=== PATIENT | male | born 1960 | race Caucasian/White ===

== ENCOUNTER 2018-04-27 06:35 | Day surgery (SDC) | payer OTHER ==
[~2018-04-27] VITALS: Ht 175.3 cm; Wt 74.8 kg
[~2018-04-27 06:35] MED LIST: IBUPROFEN600 MG PO; KEFLEX500 MG PO; METOPROLOL TART25 MG; NORCO 5-325 TA1 EACH PO
[2018-04-27] MEDS ORDERED: GLUCOSAMINE1000 MG PO (06:58)
--- NOTE | 2018-04-27 08:16 | NUR ---
04/27/18 0816 Gianna Li 0809- PT ARRIVES TO PACU EASILY AROUSABLE TO VOICE. PT REPORTS NO PAIN OR NAUSEA. PT IS PASSING FLATUS. RESP EVEN AND UNLABORED. OXYGEN SAT HIGH 90'S TO 100% ON 3L VIA NC. 0813- PT TURNED HIMSELF TO HIS BACK AND PT SAT UP IN BED. PT REPORTS NO DIZZINESS, NAUSEA, OR PAIN. PT GIVEN WATER TO SIP ON. TOLERATING WELL. OXYGEN TURNED OFF. OXYGEN SAT HIGH 90'S ON RA.
--- NOTE | 2018-04-27 14:51 | OR ---
[facility] [address], [place] [address] Signed DATE OF OPERATION: 04/27/2018 SURGEON: Vero Yanes MD PREOPERATIVE DIAGNOSES: Left lower abdominal pain, constipation, episodic rectal bleeding. POSTOPERATIVE DIAGNOSES: 1. Sigmoid diverticulosis. 2. Internal hemorrhoids. 3. Small polyp of right colon. PROCEDURE: Total colonoscopy to cecum with cold morcellation polypectomy x1. ANESTHESIA: Intravenous sedation, fentanyl 150 mcg, Versed 5 mg. INDICATION: This 58-year-old white man is a patient of PAUL Reyes and has had complaints of left lower abdominal pain, sensation of a "blockage" including constipation, episodic rectal bleeding. He has had no weight loss or other systemic signs of infection or malignancy. 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 He is admitted at this time to undergo colonoscopy. He understands the risks of bleeding, infection, and perforation. He has no family history of colon cancer. FINDINGS: The prep was excellent. Complete colonoscopy was undertaken to the cecum. There was a small sessile polyp of the distal ascending colon, which was excised with cold morcellation technique. He had diverticulosis of the sigmoid and internal hemorrhoidal changes as well. There was no sign of blood or active bleeding. DESCRIPTION OF PROCEDURE: The patient was brought to the endoscopy suite and placed in lateral decubitus position given intravenous sedation to the point of slurred speech and nystagmus. Digital rectal examination was normal. An Olympus video colonoscope was passed in the rectum and manipulated through the sigmoid where numerous diverticula were seen of the sigmoid and left colon. Scope was ultimately advanced to the cecum. The ileocecal valve and appendiceal orifice were Electronically Signed By: VERO YANES MD 04/27/18 1451 PATIENT NAME: GISELLA MORAN OPERATIVE REPORT DATE OF : 60 REPORT #: [id number] PHYSICIAN: VERO YANES MD PCP: JONEL XAVIER REPORT IS CONFIDENTIAL AND NOT TO BE RELEASED WITHOUT AUTHORIZATION [facility] [address], [place] [address] Signed normal. Scope was withdrawn from that point and careful examination undertaken, showed a small sessile polyp about the hepatic flexure in the ascending colon. This was excised with cold morcellation technique. Narrow band imaging confirmed the lesion highly probable to be an adenoma. Careful withdrawal of scope more fully was undertaken showing no sign of other polyp. Diverticula were less prominent on withdrawal of the scope. Retroflexed view of the rectum showed internal hemorrhoidal changes with no sign of active bleeding. The scope was removed and the patient was taken to recovery room in good condition. CONCLUDING DIAGNOSES: Rectal bleeding probably related to hemorrhoids, left lower abdominal pain and constipation related to diverticulosis. PLAN: Recommend repeat colonoscopy in 3 years based on polyp that was found. Recommend Citrucel 1 tablespoon daily with added water and increased fluids and diet. If he should have recurrent rectal bleeding, consideration should be made for hemorrhoidal banding in the office setting. MD REGINA Roy/JANETTE /[id number] cc: PAUL Panda Copies: JONEL XAVIER ~ Electronically Signed By: VERO YANES MD 04/27/18 1451 PATIENT NAME: GISELLA MORAN OPERATIVE REPORT DATE OF : 60 REPORT #: [id number] PHYSICIAN: VERO YANES MD PCP: JONEL XAVIER REPORT IS CONFIDENTIAL AND NOT TO BE RELEASED WITHOUT AUTHORIZATION
== END 2018-04-27 08:50 | disposition home or self-care (01) ==
LOC: OPS 06:35 → DS 06:35 → OPS 06:45
PROVIDERS: Surgery
PROC: 0DBK8ZZ Excision of Ascending Colon, Via Natural or Artificial Opening Endoscopic (ICD-10-PCS; principal; 2018-04-27 06:45)
DX: D12.2 Benign neoplasm of ascending colon (principal); K57.30 Diverticulosis of large intestine without perforation or abscess without bleeding; K64.8 Other hemorrhoids; I10 Essential (primary) hypertension; J45.909 Unspecified asthma, uncomplicated; F17.210 Nicotine dependence, cigarettes, uncomplicated; Z79.899 Other long term (current) drug therapy
CPT/HCPCS: 99153; G0500; J2250; J3010; J7120

== ENCOUNTER 2018-05-09 16:05 | Emergency (ER) | payer OTHER ==
[~2018-05-09] VITALS: Ht 175.3 cm; Wt 74.8 kg
[~2018-05-09 16:05] MED LIST changes: +GLUCOSAMINE1000 MG PO
[2018-05-09] MEDS ORDERED: CYCLOBENZAPRINE10 MG PO (17:56)
[2018-05-09] MEDS ORDERED: NORCO 5-325 TA1 EACH PO (17:56)
== END 2018-05-09 18:15 | disposition home or self-care (01) ==
LOC: ED 16:05
DX: M62.838 Other muscle spasm (principal); I10 Essential (primary) hypertension; F17.200 Nicotine dependence, unspecified, uncomplicated
CPT/HCPCS: 70450; 72125; 80053; 81001; 85025; 96361; 99284-25; J1170; J7120

== ENCOUNTER 2021-08-10 10:40 | Day surgery (SDC) | payer OTHER ==
[~2021-08-10] VITALS: Ht 175.3 cm; Wt 76.8 kg
[~2021-08-10 10:40] MED LIST changes: +CYCLOBENZAPRINE10 MG PO
[2021-08-10] MEDS ORDERED: LISINOPRIL20 MG PO (11:09)
[2021-08-10] MEDS ORDERED: EQ GLUCOSAMINE1 EACH PO (11:10)
--- NOTE | 2021-08-10 13:15 | NUR ---
08/10/21 1315 Sunita Lewis 1312 PATIENT ARRIVES TO PACU SLEEPING. AWAKENS WITH VERBAL STIMULI. BACK TO SLEEP WHEN NOT STIMULATED. RESP EVEN AND UNLABORED, NC ON AT 2 LITERS, TURNED OFF ON ARRIVAL TO PACU, ROOM AIR SATS >96%.
--- NOTE | 2021-08-14 21:23 | OR ---
[facility] [address], [place] [address] Signed DATE OF OPERATION: 08/10/2021 SURGEON: Vero Yanes MD PREOPERATIVE DIAGNOSES: 1. History of tubular adenoma, right colon in 2018. 2. Diverticulosis. POSTOPERATIVE DIAGNOSIS: Diverticulosis, no evidence of polyps. PROCEDURE: Total colonoscopy to cecum. ANESTHESIA: Intravenous sedation, fentanyl 100 mcg and Versed 5 mg. INDICATIONS: This 61-year-old white man is a patient of PAUL Hickman. He is known to me from the past in 2018, having undergone colonoscopy and undergone a tubular adenoma excision of the right colon. He has no symptoms currently and no family history of colon cancer. He is known to have diverticulosis. He is admitted at this time to undergo surveillance colonoscopy. He understands the risks of bleeding, infection, and perforation. FINDINGS: The prep was excellent. Complete colonoscopy was undertaken. The cecum without question. He has scattered diverticula of the sigmoid and left colon, but no other findings of concern and specifically no polyps or cancer. DESCRIPTION OF PROCEDURE: The patient was brought to the endoscopy suite and placed in lateral decubitus position given intravenous sedation to the point of slurred speech and nystagmus. Digital rectal examination was normal. An Olympus video colonoscope was passed into the rectum and manipulated throughout the colon ultimately intubating the cecum itself. The ileocecal valve was prominent and normal. The scope was withdrawn from that point. Examination throughout showed no sign of abnormality, specifically no polyps or colitis, but did confirm diverticula of the sigmoid colon. Retroflexed view of the rectum was essentially normal. Scope was Electronically Signed By: VERO YANES MD 08/14/212122 PATIENT NAME: GISELLA MORAN OPERATIVE REPORT DATE OF : 60 REPORT #: [id number] PHYSICIAN: VERO YANES MD PCP: ORLANDO COELHO REPORT IS CONFIDENTIAL AND NOT TO BE RELEASED WITHOUT AUTHORIZATION [facility] [address], [place] [address] Signed removed and the patient was taken to the recovery room in good condition. CONCLUDING DIAGNOSIS: Diverticulosis, no evidence of polyps. PLAN: 1. Recommend repeat colonoscopy in 10 years or sooner if clinically indicated. Recommend high-fiber diet. 2. He will return to the ongoing care of PAUL Hickman. MD REGINA Roy/MODL /[id number] cc: PAUL Hickman Copies: ORLANDO COELHO ~ Electronically Signed By: VERO YANES MD 08/14/21 2123 PATIENT NAME: GISELLA MORAN OPERATIVE REPORT DATE OF : 60 REPORT #: [id number] PHYSICIAN: VERO YANES MD PCP: ORLANDO COELHO REPORT IS CONFIDENTIAL AND NOT TO BE RELEASED WITHOUT AUTHORIZATION
== END 2021-08-10 14:00 | disposition home or self-care (01) ==
LOC: OPS 10:40 → DS 10:40 → OPS 14:00 → DS 14:00
PROVIDERS: ATTEND Surgery
PROC: 0DJD8ZZ Inspection of Lower Intestinal Tract, Via Natural or Artificial Opening Endoscopic (ICD-10-PCS; principal; 2021-08-10 14:00)
DX: K57.30 Diverticulosis of large intestine without perforation or abscess without bleeding (principal); R10.32 Left lower quadrant pain; Z86.010 Personal history of colon polyps; F17.210 Nicotine dependence, cigarettes, uncomplicated; Z86.16 Personal history of COVID-19; I10 Essential (primary) hypertension
CPT/HCPCS: 99153; G0500; J2250; J3010; J7121